=== PATIENT | male | born 2000 | race Two or more races ===

== ENCOUNTER 2025-03-21 09:46 | Inpatient (IN) | payer OTHER ==
[~2025-03-21] VITALS: Ht 193 cm; Wt 89.3 kg
--- NOTE | 2025-03-21 10:20 | ED.PDOC ---
GI ASSESSMENT HPI Comments 24 year old male presents to the ED with a chief complaint of abdominal pain onset 1 day. Patient states he began experiencing RLQ pain, described as a sharp pain, yesterday while he was driving. He was also experiencing a few episodes of nausea/vomiting, now resolved. He noticed pain worsened last night. Denies fever, chills, diarrhea, headache, dizziness, hematemesis, melena, blood in stool, dysuria, hematuria. No other symptoms or modifying factors present at this time. Chief Complaint: Abdominal Pain Time Seen by MD: 10:15 Reviewed Notes: Medications, Allergies Allergies: Coded Allergies: NO KNOWN ALLERGIES (Unverified , 03/21/25) Information Source: Patient Mode of Arrival: Ambulatory Timing: Days Duration: Since onset Prehospital treatment: None Quality: Sharp Severity: Moderate Recent: None Recent Hx of: None Pain Location: RLQ Modifying Factors: Nothing Associated sign and symptoms: Nausea, Vomiting, Abdominal Pain Past Medical History PAST MEDICAL HISTORY: Denies Surgical History: Denies all surgeries Family History Family History: Reviewed,noncontributory to illness, No family hx of Cancer, No family hx of DM, No family hx of Heart santiago, No family hx of HTN, No family hx ofKidney santiago, No family hx of Liver santiago, No family hx of Lung santiago, No family hx of Stroke Social History Smoker: Non-Smoker Alcohol: Denies ETOH Use Drugs: Denies Drug Use Lives In: Home Constitutional: denies: chills, diaphoresis, fatigue, fever, malaise, sweats, weakness, others EENTM: denies: blurred vision, double vision, ear bleeding, ear discharge, ear drainage, ear pain, ear ringing, eye pain, eye redness, hearing loss, mouth pain, mouth swelling, nasal discharge, nose bleeding, nose congestion, nose pain, photophobia, tearing, throat pain, throat swelling, voice changes, others Respiratory: denies: cough, hemoptysis, orthopnea, SOB at rest, shortness of breath, SOB with excertion, stridor, wheezing, others Cardiovascular: denies: chest pain, dizzy spells, diaphoresis, Dyspnea on exertion, edema, irregular heart beat, left arm pain, lightheadedness, palpitations, PND, syncope, others Gastrointestinal: reports: abdominal pain (RLQ), nausea, vomiting; denies: abdomen distended, blood streaked bowels, constipated, diarrhea, dysphagia, difficulty swallowing, hematemesis, melena, poor appetite, poor fluid intake, rectal bleeding, rectal pain, others Genitourinary: denies: burning, dysuria, flank pain, frequency, hematuria, incontinence, penile discharge, penile sore, pain, testicle pain, testicle swelling, urgency, others Neurological: denies: dizziness, fainting, headache, left sided numbness, left sided weakness, numbness, paresthesia, pre-existing deficit, right sided numbness, right sided weakness, seizure, speech problems, tingling, tremors, weakness, others Musculoskeletal: denies: back pain, gout, joint pain, joint swelling, muscle pain, muscle stiffness, neck pain, others Integumetry: denies: bruises, change in color, change in hair/nails, dryness, laceration, lesions, lumps, rash, wounds, others Allergic/Immunocompromised: denies: Difficulty Healing, Frequent Infections, Hives, Itching, others Hematologic/Lymphatic: denies: anemia, blood clots, easy bleeding, easy bruising, swollen glands, others Endocrine: denies: excessive hunger, excessive sweating, excessive thirst, excessive urination, flushing, intolerance to cold, intolerance to heat, unexplained weight gain, unexplained weight loss, others Psychiatric: denies: anxiety, bipolar disorder, depression, hopeless, panic disorder, schizophrenia, sleepless, suicidal, others All Other Systems: Reviewed and Negative Physical Exam General Appearance: Normal HEENT: Normal ENT Inspection, Pharynx Normal, TMs Normal Neck: Full Range of Motion, Non-Tender, Normal, Normal Inspection Respiratory: Chest Non-Tender, Lungs Clear, No Accessory Muscle Use, No Respiratory Distress, Normal Breath Sounds Cardiovascular: No Edema, No JVD, No Murmur, No Gallop, Normal Peripheral Pulses, Regular Rate/Rhythm Breast Exam: Deferred Gastrointestinal: Normal Bowel Sounds, RLQ (tenderness), Tenderness (RLQ) Genitalia: Deferred Pelvic: Deferred Rectal: Deferred Extremities: No calf tenderness, Normal capillary refill, Normal inspection, Normal range of motion, Non-tender, No pedal edema Musculoskeletal : Apperance: Normal Neurologic: Alert, 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 Was a procedure done?: No GI differential Dx Differential Diagnosis: Appendicitis, UTI, Kidney Stone X-Ray, Labs, Meds, VS Vital Signs Date Time Temp Pulse Resp B/P (MAP) Pulse Ox O2 Delivery O2 Flow Rate FiO2 03/21/25 13:02 98.0 63 16 132/72 (92) 99 98.0 03/21/25 10:54 98.0 66 18 122/80 (94) 99 98.0 03/21/25 09:49 98.1 81 18 127/78 97 98.1 Lab Test 03/21/25 10:24 Range/Units White Blood Count 9.6 4.4-10.8 10^3/uL Red Blood Count 4.90 4.5-5.90 10^6/uL Hemoglobin 15.1 13.5-17.5 g/dL Hematocrit 44.7 41.0-53.0 % Mean Corpuscular Volume 91.3 80.0-100.0 fL Mean Corpuscular Hemoglobin 30.9 28.0-32.0 pg Mean Corpuscular Hemoglobin Concent 33.8 32.0-36.0 g/dL Red Cell Distribution Width 13.8 11.8-14.3 % Platelet Count 295 140-450 10^3/uL Mean Platelet Volume 7.3 6.9-10.8 fL Neutrophils (%) (Auto) 75.8 37.0-80.0 % Lymphocytes (%) (Auto) 15.0 10.0-50.0 % Monocytes (%) (Auto) 8.0 0.0-12.0 % Eosinophils (%) (Auto) 0.8 0.0-7.0 % Basophils (%) (Auto) 0.4 0.0-2.0 % Neutrophils # (Auto) 7.3 1.6-8.6 10 ^3/uL Lymphocytes # (Auto) 1.4 0.4-5.4 10 ^3/uL Monocytes # (Auto) 0.8 0-1.3 10 ^3/uL Eosinophils # (Auto) 0.1 0-0.8 10 ^3/uL Basophils # (Auto) 0 0-0.2 10 ^3/uL Nucleated Red Blood Cells 0.1 % Sodium Level 143 136-145 mmol/L Potassium Level 4.5 3.5-5.1 mmol/L Chloride Level 102 98-107 mmol/L Carbon Dioxide Level 30 20-31 mmol/L Anion Gap 11 5-15 Blood Urea Nitrogen 10 9-23 mg/dL Creatinine 1.24 0.700-1.30 mg/dL Glomerular Filtration Rate Calc 83 >90 mL/min BUN/Creatinine Ratio 8.1 L 10.0-20.0 Serum Glucose 98 74-106 mg/dL Calcium Level 9.6 8.7-10.4 mg/dL Total Bilirubin 1.6 H 0.2-1.0 mg/dL Aspartate Amino Transferase (AST) 22 13-40 U/L Alanine Aminotransferase (ALT) 28 7-40 U/L Alkaline Phosphatase 72 46-116 U/L Total Protein 7.5 5.7-8.2 g/dL Albumin 4.8 3.2-4.8 g/dL Lipase 28 12-53 U/L Current Medications Medications (Trade) Dose Ordered Sig/Garrison Route Start Time Stop Time Status Last Admin Sodium Chloride 1,000 ml @ 1,000 mls/hr Q1H ONCE IV 03/21/25 10:30 03/21/25 11:29 DC 03/21/25 10:30 Time of 1ST Reevaluation: 10:45 Reevaluation 1ST: Unchanged Patient Education/Counseling: Diagnosis, Treatment, Prognosis Family Education/Counseling: No Family Present SEPSIS Sepsis Screen Date sepsis recognized/suspect: Mar 21, 2025 Time Sepsis recognized/suspect: 951 Recent Procedure: No On Antibiotic Therapy: No Respiratory Rate >20: No Heart Rate >90: No Temp<36 C (96.8 F) or >38.3 C: No SBP <90 or MAP <65 mmHG: No New Acute Mental Status Change: No Is the patient on CPAP, BIPAP,: No Physician Orders Urinalysis (03/21/25 10:17) Ct Ab Pel With Iv Con Only (03/21/25 10:17) Cefazolin 2 Gm/W1p33tw (Ancef) (03/21/25 13:15) Metronidazole 500mg/100ml (Flagyl 500mg/ (03/21/25 13:15) * Surgical Consult (03/21/25 ) Vital Signs Date Time Temp Pulse Resp B/P (MAP) Pulse Ox O2 Delivery O2 Flow Rate FiO2 03/21/25 13:02 98.0 63 16 132/72 (92) 99 98.0 03/21/25 10:54 98.0 66 18 122/80 (94) 99 98.0 03/21/25 09:49 98.1 81 18 127/78 97 98.1 Laboratory Tests Test 03/21/25 10:24 White Blood Count 9.6 10^3/uL (4.4-10.8) Medications Medications Dose Ordered Sig/Garrison Route Start Time Stop Time Status Last Admin Dose Admin Sodium Chloride 1,000 ml @ 1,000 mls/hr Q1H ONCE IV 03/21/25 10:30 03/21/25 11:29 DC 03/21/25 10:30 Departure 1 Departure Time of Disposition: 13:50 ([place] Authorization to admit at [facility]: [id number] with acute appendicitis and likely developing peritonitis. We [facility] for urgent surgical evaluation.Patient presented with abdominal pain that was concerning for possible appendicits, gastritis, cholecystitis, colitis, gastroenteritis, sbo, or orther possible surgical emergency. Data: 1. I ordered and reviewed the result of at least 3 labs including a CBC, BMP, and Urinalysis. 2. I independently interpreted the f ollowing tests: CT Abdomen and Pelvis is concerning for acute appendicitis .Risk:This patient has a high risk of morbidity due to further diagnostic testing or treatment and may suffer from an acute abdominal process disorder. Workup reveals acute appendicitis and patient should be admitted for further workup. and possible expert consultation. ) Impression: Primary Impression: Acute appendicitis Additional Impression: Intractable abdominal pain Disposition: ADMITTED INPATIENT Admit to: Tele Condition: Guarded Critical Care Note Critical Care Time?: Yes Critical care comment: Intractable Abdominal Pain, Acute Appendicitis Authorized and Performed by: Julio Trotter MD Total critical care time: Approximately 39 minutes Due to a high probability of clinically significant, life threatening deterioration, the patient required my highest level of preparedness to intervene emergently and I personally spent this critical care time directly and personally managing the patient. This critical care time included obtaining a history; examining the patient; pulse oximetry; ordering and review of studies; arranging urgent treatment with development of a management plan; evaluation of patient's response to treatment; frequent reassessment; and, discussions with other providers. This critical care time was performed to assess and manage the high probability of imminent, life-threatening deterioration that could result in multi-organ failure. It was exclusive of separately billable procedures and treating other patients and teaching time. Please see my other sections and the rest of the note for further information on patient assessment and treatment. Stability Stability form required: No Heart Score Heart Score: Heart Score Response (Comments) Value History N/A 0 EKG N/A 0 Age N/A 0 Risk Factors N/A 0 Troponin N/A 0 Total 0 I personally scribed for JULIO TROTTER MD ([email or web address]) on 03/21/25 at 10:20. Electronically submitted by Johana Estrada ([email or web address]). JULIO TROTTER MD Mar 21, 2025 10:20
[2025-03-21] MEDS: MORPHINE SULFATE 4 MG/ML SYR/VIAL IV ONE ×2 (10:30→13:15)
[2025-03-21] MEDS: ONDANSETRON HCL 4 MG/2 ML VIAL IV ONE ×2 (10:30→13:15)
[2025-03-21] MEDS: SODIUM CHLORIDE 0.9% 1,000 ML IV ONE ×2 (10:30→15:45)
[2025-03-21 11:01] LABS: Hematocrit 44.7 % (41.0-53.0); Hemoglobin 15.1 g/dL (13.5-17.5); Mean Corpuscular Hemoglobin 30.9 pg (28.0-32.0); Mean Corpuscular Volume 91.3 fL (80.0-100.0); Nucleated Red Blood Cells % 0.1 %
[2025-03-21 11:24] LABS: Alanine Aminotransferase 28 U/L (7-40); Albumin 4.8 g/dL (3.2-4.8); Alkaline Phosphatase 72 U/L (46-116); Anion Gap 11 (5-15); BUN/Creatinine Ratio 8.1 (10.0-20.0); Blood Urea Nitrogen 10 mg/dL (9-23); Calcium 9.6 mg/dL (8.7-10.4); Carbon Dioxide 30 mmol/L (20-31); Chloride 102 mmol/L (98-107); Glucose 98 mg/dL (74-106); Lipase 28 U/L (12-53); Potassium 4.5 mmol/L (3.5-5.1); Sodium 143 mmol/L (136-145); Total Protein 7.5 g/dL (5.7-8.2)
[2025-03-21 11:27] LABS: Bilirubin, Total 1.6 mg/dL (0.2-1.0)
[2025-03-21] MEDS: IOHEXOL 300 MG/ML 100ML BOTTLE IJ ONE (12:12)
--- NOTE | 2025-03-21 12:47 | DVH ---
Indication: rlq pain Technique: CT axial images of the abdomen and pelvis are obtained with intravenous contrast. Coronal and sagittal reformats were obtained. Radiation Dose Information: CTDI volume is 13.6 mGy. Dose-length product is 838 mGy*cm Comparison: None FINDINGS: Lung bases demonstrate no pleural effusion. Adrenal glands, spleen, pancreas unremarkable. No enhancing hepatic lesion. No CT evidence for cholelithiasis. Hepatic steatosis. 6 mm posterior right hepatic lobe hypodensity, too small to characterize statistically likely representing cysts. No hydronephrosis. Stomach is partially distended. Small bowel loops are normal in caliber. Moderate volume stool throughout the colon. The appendix is inflamed and hyperemic measuring 12 mm in diameter. Periappendiceal stranding, edema. Right lower quadrant lymph nodes measuring up to 8 mm. The abdominal aorta is normal in caliber. Bladder distended. Small amount of free pelvic fluid. No inguinal lymphadenopathy. IMPRESSION: Acute appendicitis. Small amount of free pelvic fluid. Hepatic steatosis. Other findings as described. Critical Result: Acute appendicitis Findings discussed with Dr Trotter, at 03/21/2025 12:49 PM, and acknowledged receipt and understanding of the findings. ..
[2025-03-21] MEDS: ceFAZolin 2 GM/D5W50ml 50 ML IV ONE (13:15)
[2025-03-21] MEDS ORDERED: ONDANSETRON HCL 4 MG/2 ML VIAL IV PRN (15:15)
[2025-03-21] MEDS ORDERED: DOCUSATE SOD 100 MG CAP PO PRN (15:15)
[2025-03-21] MEDS ORDERED: ACETAMINOPHEN 325 MG TAB PO PRN (15:15)
[2025-03-21] MEDS: SODIUM CHLORIDE 0.9% 1,000 ML IV SCH (15:45)
--- NOTE | 2025-03-21 15:59 | DVHHP2 ---
History of Present Illness Reason for Visit: Abdominal pain History of Present Illness Dominick Waters Jr, is a 24-year-old male with no significant past medical history who came to the hospital with complaints of abdominal pain. Patient states his pain began yesterday about 1100. It started as a diffuse pain then this morning it became worse in his RLQ and he had associated nausea and vomiting prompting him to come to the hospital. Past Surgical History: None Smoke: No ALCOHOL: occassional Drugs: None Lives: with Family Domestic Violence: Neg Review of Systems Constitutional: No: Fever, Chills, Sweats, Weakness, Malaise, Other Eyes: No: Pain, Vision change, Conjunctivae inflammation, Eyelid inflammation, Other, Redness ENT: No: Ear pain, Ear discharge, Nose pain, Nose discharge, Nose congestion, Mouth pain, Mouth swelling, Throat pain, Throat swelling, Other Respiratory: No: Cough, Dry, Shortness of breath, SOB with excertion, Wheezing, Hemoptysis, Pleuritic Pain, Sputum, Wheezing, Other Cardiovascular: No: Chest Pain, Palpitations, Orthopnea, Paroxysmal Noc. Dyspnea, Edema, Lt Headedness, Other Gastrointestinal: Nausea, Vomiting, Abdominal Pain; No: Diarrhea, Constipation, Melena, Hematochezia, Other Genitourinary: No Dysuria, No Frequency, No Incontinence, No Hematuria, No Retention, No Other Musculoskeletal: No: other, neck pain, shoulder pain, arm pain, back pain, hand pain, leg pain, foot pain Skin: No: Rash, Lesions, Jaundice, Bruising, Other Neurological: No: Weakness, Numbness, Incoordination, Change in speech, Confusion, Seizures, Other Allergies: Coded Allergies: NO KNOWN ALLERGIES (Unverified , 03/21/25) Medications Current Medications Medications Dose Ordered Sig/Garrison Route Start Time Stop Time Status Last Admin Dose Admin Acetaminophen/ Hydrocodone Bitart 1 tab Q4HP PRN PO 03/21/25 15:15 UNV Ondansetron HCl 4 mg Q4HP PRN IV 03/21/25 15:15 UNV Docusate Sodium 100 mg BIDPRN PRN PO 03/21/25 15:15 UNV Acetaminophen 650 mg Q6HP PRN PO 03/21/25 15:15 UNV Ceftriaxone Sodium 50 ml @ 100 mls/hr DAILY@09 IV 03/22/25 09:00 UNV Metronidazole 100 ml @ 100 mls/hr Q8HR IV 03/21/25 22:00 UNV Exam Vital Signs Vital Signs Date Time Temp Pulse Resp B/P (MAP) Pulse Ox O2 Delivery O2 Flow Rate FiO2 03/21/25 15:33 98.0 60 16 130/72 (91) 99 98.0 General Appearance: Alert, Oriented X3, Cooperative, moderate distress HEENT: Atraumatic, PERRLA Respiratory: Clear to auscultation, Normal air movement Cardiovascular: Regular rate, Normal S1, Normal S2, No murmurs Abdominal: Normal bowel sounds, Soft, No hepatospenomegaly, Other (abdominal tnederness to RLQ) Extremities: No clubbing, No cyanosis, No edema Skin: No rashes, No breakdown, No significant lesion Neuro: Normal gait, Normal speech, Strength at 5/5 X4 ext Psych/Mental Status: Mental status NL, Mood NL Labs/Xrays Labs Test 03/21/25 10:24 Range/Units White Blood Count 9.6 4.4-10.8 10^3/uL Red Blood Count 4.90 4.5-5.90 10^6/uL Hemoglobin 15.1 13.5-17.5 g/dL Hematocrit 44.7 41.0-53.0 % Mean Corpuscular Volume 91.3 80.0-100.0 fL Mean Corpuscular Hemoglobin 30.9 28.0-32.0 pg Mean Corpuscular Hemoglobin Concent 33.8 32.0-36.0 g/dL Red Cell Distribution Width 13.8 11.8-14.3 % Platelet Count 295 140-450 10^3/uL Mean Platelet Volume 7.3 6.9-10.8 fL Neutrophils (%) (Auto) 75.8 37.0-80.0 % Lymphocytes (%) (Auto) 15.0 10.0-50.0 % Monocytes (%) (Auto) 8.0 0.0-12.0 % Eosinophils (%) (Auto) 0.8 0.0-7.0 % Basophils (%) (Auto) 0.4 0.0-2.0 % Neutrophils # (Auto) 7.3 1.6-8.6 10 ^3/uL Lymphocytes # (Auto) 1.4 0.4-5.4 10 ^3/uL Monocytes # (Auto) 0.8 0-1.3 10 ^3/uL Eosinophils # (Auto) 0.1 0-0.8 10 ^3/uL Basophils # (Auto) 0 0-0.2 10 ^3/uL Nucleated Red Blood Cells 0.1 % Sodium Level 143 136-145 mmol/L Potassium Level 4.5 3.5-5.1 mmol/L Chloride Level 102 98-107 mmol/L Carbon Dioxide Level 30 20-31 mmol/L Anion Gap 11 5-15 Blood Urea Nitrogen 10 9-23 mg/dL Creatinine 1.24 0.700-1.30 mg/dL Glomerular Filtration Rate Calc 83 >90 mL/min BUN/Creatinine Ratio 8.1 L 10.0-20.0 Serum Glucose 98 74-106 mg/dL Calcium Level 9.6 8.7-10.4 mg/dL Total Bilirubin 1.6 H 0.2-1.0 mg/dL Aspartate Amino Transferase (AST) 22 13-40 U/L Alanine Aminotransferase (ALT) 28 7-40 U/L Alkaline Phosphatase 72 46-116 U/L Total Protein 7.5 5.7-8.2 g/dL Albumin 4.8 3.2-4.8 g/dL Lipase 28 12-53 U/L Technique: CT axial images of the abdomen and pelvis are obtained with intravenous contrast. FINDINGS: Lung bases demonstrate no pleural effusion. Adrenal glands, spleen, pancreas unremarkable. No enhancing hepatic lesion. No CT evidence for cholelithiasis. Hepatic steatosis. 6 mm posterior right hepatic lobe hypodensity, too small to characterize statistically likely representing cysts. No hydronephrosis. Stomach is partially distended. Small bowel loops are normal in caliber. Moderate volume stool throughout the colon. The appendix is inflamed and hyperemic measuring 12 mm in diameter. Periappendiceal stranding, edema. Right lower quadrant lymph nodes measuring up to 8 mm. The abdominal aorta is normal in caliber. Bladder distended. Small amount of free pelvic fluid. No inguinal lymphadenopathy. IMPRESSION: Acute appendicitis. Small amount of free pelvic fluid. Hepatic steatosis. Other findings as described. Critical Result: Acute appendicitis Findings discussed with Dr Trotter, at 03/21/2025 12:49 PM, and acknowledged receipt and understanding of the findings. SEPSIS Sepsis Screen Date sepsis recognized/suspect: Mar 21, 2025 Time Sepsis recognized/suspect: 0952 Recent Procedure: No On Antibiotic Therapy: No Respiratory Rate >20: No Heart Rate >90: No Temp<36 C (96.8 F) or >38.3 C: No SBP <90 or MAP <65 mmHG: No New Acute Mental Status Change: No Is the patient on CPAP, BIPAP,: No Physician Orders Urinalysis (03/21/25 10:17) Ct Ab Pel With Iv Con Only (03/21/25 10:17) * Surgical Consult (03/21/25 ) Admit (03/21/25 15:03) Code Status (03/21/25 15:03) Hydrocodone-Acet 5/325mg Tab ([place] 5/32 (03/21/25 15:15) Ondansetron Hcl (Zofran) (03/21/25 15:15) Docusate Sodium Capsule (Colace Capsule) (03/21/25 15:15) Complete Blood Count (03/22/25 04:00) Comprehensive Metabolic Panel (03/22/25 04:00) Npo (Nothing By Mouth) Diet (03/21/25 Dinner) Condition: Serious (03/21/25 15:03) Acetaminophen Tablet (Tylenol Tablet) (03/21/25 15:15) Ceftriaxone 1gm/50ml (Rocephin) (03/22/25 09:00) Metronidazole 500mg/100ml (Flagyl 500mg/ (03/21/25 22:00) Vital Signs Date Time Temp Pulse Resp B/P (MAP) Pulse Ox O2 Delivery O2 Flow Rate FiO2 03/21/25 15:33 98.0 60 16 130/72 (91) 99 98.0 03/21/25 13:02 98.0 63 16 132/72 (92) 99 98.0 03/21/25 10:54 98.0 66 18 122/80 (94) 99 98.0 03/21/25 09:49 98.1 81 18 127/78 97 98.1 Laboratory Tests Test 03/21/25 10:24 White Blood Count 9.6 10^3/uL (4.4-10.8) Medications Medications Dose Ordered Sig/Garrison Route Start Time Stop Time Status Last Admin Dose Admin Sodium Chloride 1,000 ml @ 1,000 mls/hr Q1H ONCE IV 03/21/25 10:30 03/21/25 11:29 DC 03/21/25 10:30 1,000 MLS/HR Assessment/Plan Assessment/Plan Assessment: Acute appendicitis, Hyperbilirubinemia, Plan: Admit to Med-Surg, Surgical consult, IV antibiotics, IV hydration, Pain management, Antiemetics, NPO until surgery sees patient, Plan discussed with: Patient My Orders Orders - DIONE BEASLEY Procedure Category Date Status Time Admit ADMIT 03/21/25 Transmitted 15:03 Code Status CODE 03/21/25 Transmitted 15:03 Hydrocodone-Acet PHA 03/21/25 Logged 5/325mg Tab ([place] 15:15 Ondansetron Hcl PHA 03/21/25 Logged (Zofran) 15:15 Docusate Sodium PHA 03/21/25 Logged Capsule (Colace 15:15 Complete Blood Count LAB 03/22/25 Verified 04:00 Comprehensive LAB 03/22/25 Verified Metabolic Panel 04:00 Npo (Nothing By DIET 03/21/25 Transmitted Mouth) Diet Dinner Condition: Serious KETTY 03/21/25 In Process 15:03 Acetaminophen Tablet PHA 03/21/25 Logged (Tylenol Tablet) 15:15 Ceftriaxone 1gm/50ml PHA 03/22/25 Logged (Rocephin) 09:00 Metronidazole PHA 03/21/25 Logged 500mg/100ml (Flagyl 22:00 Date of Service: Mar 21, 2025 Billing Provider: DIONE BEASLEY Common Visit Codes: [id number] INP/OBS CARE (HIGH) DIONE BEASLEY Mar 21, 2025 15:59
[2025-03-21] MEDS ORDERED: MORPHINE SULFATE INJ 2 MG/ml SYRG IV PRN (16:00)
--- NOTE | 2025-03-21 16:32 | DVH ---
CLINICAL HISTORY: Pre-Op TECHNIQUE: Single view of the chest was obtained. COMPARISON: None FINDINGS: The heart size and pulmonary vasculature are normal. The lungs are clear. IMPRESSION: NO ACUTE CARDIOPULMONARY PROCESS.
[2025-03-21 17:05] LABS: INR 1.03 (0.9-1.15); Partial Thromboplastin Time 29.6 SEC (24.5-34.5); Prothrombin Time 10.9 sec (9.3-11.8)
[2025-03-21] MEDS: HYDROcodone-ACET 5/325MG TAB PO PRN (18:13)
[2025-03-21 21:26] VITALS: BP 112/63; PULSE 61; RESP 18; TEMP 98; O2SAT 98
[2025-03-21 22:36] VITALS: PULSE 61; RESP 16; O2SAT 98
[2025-03-21 23:04] LABS: Urine Protein, UAD Negative (Negative)
[2025-03-22 01:00] VITALS: BP 96/48; PULSE 65; RESP 17; TEMP 97.8; O2SAT 96
[2025-03-22 05:00] VITALS: BP 103/53; PULSE 63; RESP 17; TEMP 97.8; O2SAT 98
[2025-03-22 06:08] LABS: Hematocrit 38.8 % (41.0-53.0); Hemoglobin 13.1 g/dL (13.5-17.5); Mean Corpuscular Hemoglobin 30.9 pg (28.0-32.0); Mean Corpuscular Volume 91.4 fL (80.0-100.0); Nucleated Red Blood Cells % 0.1 %
[2025-03-22 06:29] LABS: Alanine Aminotransferase 23 U/L (7-40); Alkaline Phosphatase 56 U/L (46-116); Anion Gap 10 (5-15); BUN/Creatinine Ratio 9.1 (10.0-20.0); Blood Urea Nitrogen 10 mg/dL (9-23); Carbon Dioxide 27 mmol/L (20-31); Chloride 105 mmol/L (98-107); Glucose 90 mg/dL (74-106); Potassium 4.2 mmol/L (3.5-5.1); Sodium 142 mmol/L (136-145); Total Protein 6.2 g/dL (5.7-8.2)
[2025-03-22 06:30] LABS: Albumin 3.9 g/dL (3.2-4.8); Calcium 8.7 mg/dL (8.7-10.4)
[2025-03-22 06:31] LABS: Bilirubin, Total 1.7 mg/dL (0.2-1.0)
--- NOTE | 2025-03-22 07:38 | DVHINCON2 ---
Consultation - Surgical Date Seen: Mar 22, 2025 Referring Physician Reason for Consultation acute appendicitis History of Present Illness History of Present Illness 24 year old male presented to the emergency room with complaint of abdominal pain . Patient states the pain began two days ago in the morning his right lower quadrant progressively got worse throughout the day. He has nausea and vomiting. Today he denies any nausea or vomiting. Past Medical/Surgical History Past Medical/Surgical History denies Family and Social History Family and Social History Smoke: No ALCOHOL: occasional Drugs: None Lives: with Family Domestic Violence: Neg Allergies and medications Allergies: Coded Allergies: NO KNOWN ALLERGIES (Unverified , 03/21/25) Review of systems Review of Systems: HEENT:Normal, CVS:Normal, RESPIRATORY:Normal, GI:Abnormal (abdominal pain ), :Normal, MSK:Normal, NEURO:Normal Examination Vital signs Vital Signs Date Time Temp Pulse Resp B/P (MAP) Pulse Ox O2 Delivery O2 Flow Rate FiO2 03/22/25 05:00 97.8 63 17 103/53 (70) 98 97.8 03/21/25 22:36 Room Air* 0 21 Medications Current Medications Medications (Trade) Dose Ordered Sig/Garrison Route PRN Reason Start Time Stop Time Status Last Admin Acetaminophen/ Hydrocodone Bitart ([place] 5/325MG Tab) 1 tab Q4HP PRN PO MODERATE PAIN (4-6 PAIN SCALE) 03/21/25 15:15 03/21/25 18:13 Ondansetron HCl (Zofran) 4 mg Q4HP PRN IV NAUSEA / VOMITING 03/21/25 15:15 Docusate Sodium (Colace Capsule) 100 mg BIDPRN PRN PO FOR CONSTIPATION 03/21/25 15:15 Acetaminophen (Tylenol Tablet) 650 mg Q6HP PRN PO PAIN SCALE 1-3 OR TEMP>100.4 03/21/25 15:15 Ceftriaxone Sodium 50 ml @ 100 mls/hr DAILY@09 IV 03/21/25 15:46 Metronidazole 100 ml @ 100 mls/hr Q8HR IV 03/21/25 22:00 03/22/25 06:11 Sodium Chloride 1,000 ml @ 125 mls/hr Q8H IV 03/21/25 15:45 03/22/25 00:07 Morphine Sulfate 2 mg Q4HPRN PRN IV SEVERE PAIN (7-10 PAIN SCALE) 03/21/25 16:00 Laboratory Labs Test 03/22/25 04:50 03/21/25 22:30 03/21/25 15:33 03/21/25 10:24 Range/Units White Blood Count 5.7 # 4.4-10.8 10^3/uL Red Blood Count 4.24 L 4.5-5.90 10^6/uL Hemoglobin 13.1 L 13.5-17.5 g/dL Hematocrit 38.8 #L 41.0-53.0 % Mean Corpuscular Volume 91.4 80.0-100.0 fL Mean Corpuscular Hemoglobin 30.9 28.0-32.0 pg Mean Corpuscular Hemoglobin Concent 33.8 32.0-36.0 g/dL Red Cell Distribution Width 13.8 11.8-14.3 % Platelet Count 241 140-450 10^3/uL Mean Platelet Volume 7.6 6.9-10.8 fL Neutrophils (%) (Auto) 58.6 37.0-80.0 % Lymphocytes (%) (Auto) 28.6 10.0-50.0 % Monocytes (%) (Auto) 9.6 0.0-12.0 % Eosinophils (%) (Auto) 2.2 0.0-7.0 % Basophils (%) (Auto) 1.0 0.0-2.0 % Neutrophils # (Auto) 3.3 1.6-8.6 10 ^3/uL Lymphocytes # (Auto) 1.6 0.4-5.4 10 ^3/uL Monocytes # (Auto) 0.5 0-1.3 10 ^3/uL Eosinophils # (Auto) 0.1 0-0.8 10 ^3/uL Basophils # (Auto) 0.1 0-0.2 10 ^3/uL Nucleated Red Blood Cells 0.1 % Sodium Level 142 136-145 mmol/L Potassium Level 4.2 3.5-5.1 mmol/L Chloride Level 105 98-107 mmol/L Carbon Dioxide Level 27 20-31 mmol/L Anion Gap 10 5-15 Blood Urea Nitrogen 10 9-23 mg/dL Creatinine 1.10 0.700-1.30 mg/dL Glomerular Filtration Rate Calc 96 >90 mL/min BUN/Creatinine Ratio 9.1 L 10.0-20.0 Serum Glucose 90 74-106 mg/dL Calcium Level 8.7 8.7-10.4 mg/dL Total Bilirubin 1.7 H 0.2-1.0 mg/dL Aspartate Amino Transferase (AST) 20 13-40 U/L Alanine Aminotransferase (ALT) 23 7-40 U/L Alkaline Phosphatase 56 46-116 U/L Total Protein 6.2 5.7-8.2 g/dL Albumin 3.9 3.2-4.8 g/dL Urine Color Light-yellow Yellow Urine Clarity Clear Clear Urine pH 5.5 5.0-9.0 Urine Specific [place] 1.020 1.001-1.035 Urine Protein Negative Negative Urine Ketones Negative Negative Urine Blood Negative Negative /uL Urine Nitrite Negative Negative Urine Bilirubin Negative Negative Urine Urobilinogen Normal Negative mg/dL Urine Leukocyte Esterase Negative Negative /uL Urine RBC 1 0 - 3 /hpf Urine Microscopic WBC 1 0-3 /HPF Urine Squamous Epithelial Cells None seen <5 /hpf Urine Bacteria None seen None Seen /hpf Urine Glucose Normal Normal mg/dL Prothrombin Time 10.9 9.3-11.8 sec Prothrombin Time INR 1.03 0.9-1.15 Activated Partial Thromboplast Time 29.6 24.5-34.5 SEC Lipase 28 12-53 U/L Examination: GENERAL:Normal, HEENT:Normal, NECK:Normal, LUNGS:Normal, CVS:Normal, ABDOMEN:Abnormal (right lower quadrant tender to palpation), MSK:Normal, SKIN:Normal, NEURO:Normal Problem List/Assessment/Plan Problems: (1) Acute appendicitis Assessment and Plan patient complaint of right lower quadrant pain for the past two days with no improvement review of CT acute appendicitis labs, image reports and notes reviewed Plan: Laparoscopic possibly open appendectomy today all risks and complications explained in detail Plan discussed with Plan discussed with: Patient, Other (Dr. Beaulieu ) Visit Coding Surgery Date of Service if different f: Mar 22, 2025 Billing Provider: GIUSEPPE BEAULIEU MD Surgery Visit Codes: 87461 - INP CONSULT <80 MIN TAHIR HIGUERA ROLLER PRESSER OPERATOR Mar 22, 2025 07:38
[2025-03-22 08:35] VITALS: BP 100/54; PULSE 60; RESP 18; TEMP 97.9; O2SAT 98
[2025-03-22] MEDS ORDERED: fentaNYL CITRATE 100 MCG/2 ML VL ONE ×2 (09:19→12:22)
[2025-03-22] MEDS ORDERED: MEPERIDINE HCL (25 MG/ML) 1ML VIAL ONE (09:19)
[2025-03-22] MEDS ORDERED: MIDAZOLAM HCL 2MG/2ML 2ml VIAL (1mg/ml) ONE ×2 (09:20→12:22)
[2025-03-22] MEDS ORDERED: PROPOFOL 10 MG/ML 20 ML IV ONE ×2 (09:46→12:26)
[2025-03-22 10:01] LABS: Hepatitis B Surface Antigen Negative (Negative)
[2025-03-22] MEDS ORDERED: SUGAMMADEX 200mg/2ml Vial (100MG/ML) IV ONE (10:04)
[2025-03-22] MEDS: LIDOCAINE W/ EPINEPHRINE 1% 20ML VIAL ONE (10:05)
[2025-03-22] MEDS: BUPIVACAINE 0.5% P/F INJ 10 ML VIAL ONE (10:05)
[2025-03-22] MEDS: HYDROmorphone HCL 2 MG/ML VL/or syr IV ONE (10:15)
[2025-03-22 10:25] VITALS: PULSE 91; RESP 18; O2SAT 100
[2025-03-22 10:31] LABS: Hepatitis C Antibody Negative (Negative)
[2025-03-22] MEDS ORDERED: MORPHINE SULFATE 4 MG/ML SYR/VIAL IV PRN (10:45)
[2025-03-22] MEDS ORDERED: MIDAZOLAM HCL 2MG/2ML 2ml VIAL (1mg/ml) IV PRN (10:45)
[2025-03-22] MEDS ORDERED: hydrALAZINE HCL 20 MG/ML VL IV PRN (10:45)
[2025-03-22] MEDS ORDERED: ONDANSETRON HCL 4 MG/2 ML VIAL IV PRN (10:45)
--- NOTE | 2025-03-22 10:50 | DVHOP ---
PREOPERATIVE DIAGNOSIS: Acute suppurative appendicitis. POSTOPERATIVE DIAGNOSIS: Acute suppurative appendicitis. SURGEON: Frandy Beaulieu MD. SECURITY SHIFT SUPERVISOR: Sourav Martinez NP. ANESTHESIA: General endotracheal. ANESTHESIOLOGIST: Mr. Osborn PROCEDURES: * Laparoscopy. * Laparoscopic appendectomy. DESCRIPTION OF PROCEDURE: Under general endotracheal anesthesia with the patient's skin prepped and draped, a supraumbilical incision was made and Veress needle inserted into the peritoneal cavity by the hanging drop technique in order to establish pneumoperitoneum to 15 mmHg pressure by insufflation with carbon dioxide. With the abdomen fully distended, the needle was removed and replaced with a 5 mm trocar port through which a 0-degree viewing laparoscope was inserted and under direct vision, additional 5 mm port inserted through the midline in the subxiphoid position and a 10 mm port in the midline in the infraumbilical position. Instrumentation was introduced. Laparoscopy was conducted revealing no obvious unexpected pathology on the serosal surfaces visualized. The appendix was involved with acute suppurative appendicitis. It was lifted by placement of a Yasmine clamp onto the mesentery of the appendix. The mesoappendix was quite thickened and it was divided with an application of an EndoGIA stapler with vascular abdulkadir. Subsequently, the appendix was traced to its confluence with the cecum. At the base of the appendix, at the confluence with the cecum, it was cross-clamped and divided with an EndoGIA stapler equipped with vascular abdulkadir as well. The fully immobilized severed appendix was then placed into the specimen extraction bag, which was withdrawn through the infraumbilical 10 mm port site. The right lower quadrant was profusely irrigated. Irrigant was aspirated. Hemostasis was meticulously accomplished and found to be complete. At the termination of the procedure, there was no evidence of bleeding from either the appendicectomy site or from the port sites. Instrumentation was withdrawn. Pneumoperitoneum was evacuated. The fascial defect was closed using #0 Vicryl. The wounds were approximated using Monocryl sutures, Dermabond, glue and Steri-Strips. The patient remained stable throughout the procedure. He left the operating room following an accurate needle and sponge count. His girlfriend, Jazmine, was thoroughly informed at [phone]. MD VIRGILIO Jewell/MARYSOL TID: [id number] RECEIPT: [id number]
[2025-03-22] MEDS: HYDROmorphone HCL 2 MG/ML VL/or syr IV PRN (11:08)
[2025-03-22] MEDS ORDERED: KETAMINE 50mg/ML 1ml syringe ONE (12:31)
[2025-03-22] MEDS: D5W/SOD CHL 0.45%/KCL 20MEQ 1,000 ML IV SCH (13:17)
--- NOTE | 2025-03-22 13:34 | DVHPN2 ---
Progress Note Date Seen: Mar 22, 2025 Medical Necessity Reason Pt with a Central, PICC or Fol: No Subjective Patient reports: No new complaints Review of Systems: HEENT:Normal, CVS:Normal, RESPIRATORY:Normal, GI:Normal, :Normal, MSK:Normal, NEURO:Normal Objective vital signs Vital Sign Date Time Temp Pulse Resp B/P (MAP) Pulse Ox O2 Delivery O2 Flow Rate FiO2 03/22/25 13:10 70 15 120/57 (78) 95 03/22/25 10:25 97.7 97.7 03/22/25 10:25 Room Air 0 100 Total Intake and Output 03/21/25 03/21/25 03/22/25 15:00 23:00 07:00 Intake Total 1000 ml 100 ml Balance 1000 ml 100 ml medications Current Medications Medications Dose Ordered Sig/[place] Route Start Time Stop Time Status Last Admin Dose Admin Acetaminophen/ Hydrocodone Bitart 1 tab Q4HP PRN PO 03/21/25 15:15 03/21/25 18:13 1 TAB Ondansetron HCl 4 mg Q4HP PRN IV 03/21/25 15:15 Docusate Sodium 100 mg BIDPRN PRN PO 03/21/25 15:15 Acetaminophen 650 mg Q6HP PRN PO 03/21/25 15:15 Ceftriaxone Sodium 50 ml @ 100 mls/hr DAILY@09 IV 03/21/25 15:46 03/22/25 08:08 100 MLS/HR Metronidazole 100 ml @ 100 mls/hr Q8HR IV 03/21/25 22:00 03/22/25 06:11 100 MLS/HR Morphine Sulfate 2 mg Q4HPRN PRN IV 03/21/25 16:00 Potassium Chloride/Dextrose/ Sod Cl 1,000 ml @ 120 mls/hr Q8H20M IV 03/22/25 10:15 03/22/25 13:17 120 MLS/HR Examination: GENERAL:Normal, HEENT:Normal, NECK:Normal, LUNGS:Normal, CVS:Normal, ABDOMEN:Normal, MSK:Normal, SKIN:Normal, NEURO:Normal, :Normal laboratory and microbiology Laboratory Tests 03/22/25 04:50 Test 03/22/25 04:50 Range/Units Serum Glucose 90 74-106 mg/dL Problem List/Assessment/Plan Problem List/Assessment/Plan #1 acute appy s/p lap appy: ivf, pain meds, iv antibiotics #2 hepatic steatosis Plan discussed with: Patient My Orders My Orders Orders - LORE MITCHELL MD Procedure Category Date Status Time Complete Blood Count LAB 03/23/25 Verified 06:00 Comprehensive LAB 03/23/25 Verified Metabolic Panel 06:00 Date of Service: Mar 22, 2025 Billing Provider: LORE MITCHELL MD Common Visit Codes: [id number] INP/OBS CARE(HIGH) LORE MITCHELL MD Mar 22, 2025 13:34
[2025-03-22] MEDS: MORPHINE SULFATE 4 MG/ML SYR/VIAL IV PRN (16:51)
[2025-03-22 17:00] VITALS: BP 93/49; PULSE 66; RESP 17; TEMP 97.7; O2SAT 94
[2025-03-22 21:00] VITALS: BP 92/45; PULSE 65; RESP 19; TEMP 98; O2SAT 96
[2025-03-23 01:00] VITALS: BP 114/51; PULSE 65; RESP 19; TEMP 97.5; O2SAT 97
[2025-03-23 05:00] VITALS: BP_SYST 105; BP_SYST 99; BP_DIAS 40; BP_DIAS 60; PULSE 58; PULSE 59; RESP 19; RESP 20; TEMP 97.4; TEMP 97.5; O2SAT 97; O2SAT 98
[2025-03-23 06:20] VITALS: BP 106/58; PULSE 55
[2025-03-23 06:57] LABS: Hematocrit 39.6 % (41.0-53.0); Hemoglobin 13.5 g/dL (13.5-17.5); Mean Corpuscular Hemoglobin 31.0 pg (28.0-32.0); Mean Corpuscular Volume 91.2 fL (80.0-100.0); Nucleated Red Blood Cells % 0.1 %
[2025-03-23 07:22] LABS: Alanine Aminotransferase 19 U/L (7-40); Albumin 4.1 g/dL (3.2-4.8); Alkaline Phosphatase 58 U/L (46-116); Anion Gap 11 (5-15); BUN/Creatinine Ratio 9.2 (10.0-20.0); Blood Urea Nitrogen 10 mg/dL (9-23); Calcium 8.8 mg/dL (8.7-10.4); Carbon Dioxide 27 mmol/L (20-31); Chloride 104 mmol/L (98-107); Potassium 4.0 mmol/L (3.5-5.1); Sodium 142 mmol/L (136-145); Total Protein 6.7 g/dL (5.7-8.2)
[2025-03-23 07:23] LABS: Bilirubin, Total 0.9 mg/dL (0.2-1.0)
[2025-03-23 07:26] LABS: Glucose 117 mg/dL (74-106)
[2025-03-23 09:00] VITALS: BP 106/68; PULSE 76; RESP 16; TEMP 98; O2SAT 99
--- NOTE | 2025-03-23 10:35 | DVHDS2 ---
Discharge Summary Date of Admission Mar 21, 2025 at 15:03 Date of Discharge: Mar 23, 2025 Labs/Diagnostic Data: Laboratory Results Test 03/23/25 05:44 03/21/25 22:30 03/21/25 15:33 03/21/25 10:24 White Blood Count 8.7 10^3/uL (4.4-10.8) Red Blood Count 4.35 10^6/uL (4.5-5.90) Hemoglobin 13.5 g/dL (13.5-17.5) Hematocrit 39.6 % (41.0-53.0) Mean Corpuscular Volume 91.2 fL (80.0-100.0) Mean Corpuscular Hemoglobin 31.0 pg (28.0-32.0) Mean Corpuscular Hemoglobin Concent 34.0 g/dL (32.0-36.0) Red Cell Distribution Width 13.4 % (11.8-14.3) Platelet Count 274 10^3/uL (140-450) Mean Platelet Volume 7.7 fL (6.9-10.8) Neutrophils (%) (Auto) 79.7 % (37.0-80.0) Lymphocytes (%) (Auto) 13.3 % (10.0-50.0) Monocytes (%) (Auto) 6.7 % (0.0-12.0) Eosinophils (%) (Auto) 0.1 % (0.0-7.0) Basophils (%) (Auto) 0.2 % (0.0-2.0) Neutrophils # (Auto) 7.0 10 ^3/uL (1.6-8.6) Lymphocytes # (Auto) 1.2 10 ^3/uL (0.4-5.4) Monocytes # (Auto) 0.6 10 ^3/uL (0-1.3) Eosinophils # (Auto) 0 10 ^3/uL (0-0.8) Basophils # (Auto) 0 10 ^3/uL (0-0.2) Nucleated Red Blood Cells 0.1 % Sodium Level 142 mmol/L (136-145) Potassium Level 4.0 mmol/L (3.5-5.1) Chloride Level 104 mmol/L (98-107) Carbon Dioxide Level 27 mmol/L (20-31) Anion Gap 11 (5-15) Blood Urea Nitrogen 10 mg/dL (9-23) Creatinine 1.09 mg/dL (0.700-1.30) Glomerular Filtration Rate Calc 97 mL/min (>90) BUN/Creatinine Ratio 9.2 (10.0-20.0) Serum Glucose 117 mg/dL (74-106) Calcium Level 8.8 mg/dL (8.7-10.4) Total Bilirubin 0.9 mg/dL (0.2-1.0) Aspartate Amino Transferase (AST) 17 U/L (13-40) Alanine Aminotransferase (ALT) 19 U/L (7-40) Alkaline Phosphatase 58 U/L (46-116) Total Protein 6.7 g/dL (5.7-8.2) Albumin 4.1 g/dL (3.2-4.8) Urine Color Light-yellow (Yellow) Urine Clarity Clear (Clear) Urine pH 5.5 (5.0-9.0) Urine Specific [place] 1.020 (1.001-1.035) Urine Protein Negative (Negative) Urine Ketones Negative (Negative) Urine Blood Negative /uL (Negative) Urine Nitrite Negative (Negative) Urine Bilirubin Negative (Negative) Urine Urobilinogen Normal mg/dL (Negative) Urine Leukocyte Esterase Negative /uL (Negative) Urine RBC 1 /hpf (0 - 3) Urine Microscopic WBC 1 /HPF (0-3) Urine Squamous Epithelial Cells None seen /hpf (<5) Urine Bacteria None seen /hpf (None Seen) Urine Glucose Normal mg/dL (Normal) Prothrombin Time 10.9 sec (9.3-11.8) Prothrombin Time INR 1.03 (0.9-1.15) Activated Partial Thromboplast Time 29.6 SEC (24.5-34.5) Hepatitis B Surface Antigen Negative (Negative) Hepatitis C Antibody Negative (Negative) Lipase 28 U/L (12-53) Other Laboratory Tests 03/23/25 05:44 Brief Hx & Hospital Course: SEE DICTATED NOTE Condition at Discharge: Good Final Diagnosis/Problems List ACUTE APPY Discharge Disposition: Home Discharge Instruct/Medications Diet: Regular Activity: No Restrictions, As Tolerated Follow Up/Referral: FU WIHT SURGERY IN 1 WK Medications: SCRIPT TO PHARMACY Discharge Statement: "Patient was advised to return to the ER or call 911 if any headaches, dizziness, shortness of breath, chest pain, abdominal pain, bleeding, fevers, or worsening of medical condition. Patient was counseled about treatment plan, medications, possible side effects, patientverbalized understanding. All questions were answered to the best of my ability. This discharge took greater then 30 minutes in planning, reviewing documentation, counseling the patient, and discussing with other team members." ASSESSMENT ASSESSMENT Assessment ACUTE APPY Date of Service: Mar 23, 2025 Billing Provider: LORE MITCHELL MD Common Visit Codes: [id number] DISCH DAY >30min LORE MITCHELL MD Mar 23, 2025 10:35
[2025-03-23] MEDS ORDERED: METR-344 PO (10:38)
[2025-03-23] MEDS ORDERED: LEVO500T91 PO (10:38)
[2025-03-23] MEDS ORDERED: HYDR1TAB97 PO (10:38)
[2025-03-23] MEDS ORDERED: DOCU-94 PO (10:38)
--- NOTE | 2025-03-23 10:51 | DVHDS ---
DATE OF DISCHARGE: 03/23/2025 HISTORY OF PRESENT ILLNESS: The patient is a 24-year-old gentleman who was admitted with complaints of abdominal pain and nausea and vomiting. HOSPITAL COURSE: The patient had a CT of abdomen and pelvis that showed evidence of acute appendicitis. The patient underwent laparoscopic appendectomy on 03/22/2025. He is currently doing well and is tolerating old diet. He will be discharged home to be on [place] p.r.n. for pain, Levaquin 500 mg daily for 7 days, Flagyl 500 mg t.i.d. for 7 days, and Colace p.r.n. for constipation. He will follow up with Surgery in 1 week. FINAL DIAGNOSES: Therefore: * Acute appendicitis status post laparoscopic appendectomy. * Hepatic steatosis. Time spent in discharge planning and review of plan with the patient and nursing was 38 minutes. MD NADINE Ramos/BRAYDON TID: [id number] RECEIPT: [id number]
[2025-03-23 12:48] VITALS: BP 113/63; PULSE 66; RESP 18; TEMP 98.5; O2SAT 98
[2025-03-23] MEDS ORDERED: ROCURONIUM 10MG/ML 10ML VIAL IV ONE (13:44)
== END 2025-03-23 13:45 | disposition home or self-care (01) | DRG 399 ==
LOC: ER 09:46 → OVERFLOW 15:03 → EAST 03-22 14:30
PROVIDERS: ADMIT Internal Medicine; ATTEND Internal Medicine
PROC: 0DTJ4ZZ Resection of Appendix, Percutaneous Endoscopic Approach (ICD-10-PCS; principal; 2025-03-22 09:35)
DX: K35.80 Unspecified acute appendicitis (principal); K59.00 Constipation, unspecified; K76.0 Fatty (change of) liver, not elsewhere classified
CPT/HCPCS: 36415; 71045; 74177; 80053; 81001; 83690; 85025; 85610; 85730; 86803; 86850; 86900; 86901; 87340; 96361; 96365; 96368; 99291; G0378; J1100; J2250; J2405; J2704; J3490